=== PATIENT | female | born 1945 | race Caucasian/White ===

== ENCOUNTER 2017-05-31 15:32 | Emergency (ER) | payer MEDICARE, BC ==
[~2017-05-31] VITALS: Ht 152.4 cm; Wt 59.0 kg
[~2017-05-31 15:32] MED LIST: ALBUTEROL SULF8.5 GM INH; LEVAQUIN750 MG ORAL; NKM; PROMETHAZINE-C118 M1 ORAL
[2017-05-31] MEDS ORDERED: ARNUITY ELLIP200 MCG IH (15:43)
[2017-05-31 15:49] VITALS: BP 123/67
--- NOTE | 2017-05-31 16:27 | Emergency Room Report ---
History of Present Illness General Chief Complaint: Upper Respiratory Illness Source: Patient Present Illness HPI 72 YO Female presents to the ED c/o intermittent productive cough x 3 days, generalized body-aches, fatigue, subjective chills. denies fevers. reports ribcage pain when coughing. denies abdominal pain, tenderness, N/V. denies sore throat. reports hx of pneumonia and bronchitis, denies asthma or COPD. reports runny nose and nasal congestion. Denies CP (at rest or when not coughing) Palpitations, LOC, AMS, dizziness, Changes in Vision, Sensation, paresthesias, or a sudden severe headache. Allergies: Coded Allergies: No Known Allergies (Unverified , 07/07/14) Patient History Past Medical History: see triage record Past Surgical History: none Pertinent Family History: none Last Menstrual Period: Post Immunizations: UTD Reviewed Nursing Documentation: PMH: Agreed, PSxH: Agreed Nursing Documentation-PMH Hx Asthma: Yes - PNA x3. Review of Systems All Other Systems: negative except mentioned in HPI Physical Exam Vital Signs Date Time Temp Pulse Resp B/P (MAP) Pulse Ox O2 Delivery O2 Flow Rate FiO2 05/31/17 15:38 98.2 80 20 123/67 98 Room Air Sp02 EP Interpretation: reviewed, normal General Appearance: no apparent distress, alert, GCS 15, non-toxic Head: normocephalic, atraumatic Eyes: bilateral eye normal inspection, bilateral eye PERRL ENT: hearing grossly normal, normal pharynx, no angioedema, normal voice, TMs + canals normal, uvula midline, moist mucus membranes Neck: full range of motion, no meningismus, no bony tend, supple/symm/no masses Respiratory: chest non-tender, lungs clear, normal breath sounds, no respiratory distress, speaking full sentences, other - distant lung sounds, deep breaths cause pt. to have dry cough. no appreciable ronchi or rales. scant wheezes. Cardiovascular #1: regular rate, rhythm, no edema Rectal: deferred Musculoskeletal: back normal, gait/station normal, normal range of motion, non- tender Neurologic: alert, oriented x3, responsive, motor strength/tone normal, sensory intact, normal gait, speech normal Skin: normal color, no rash, warm/dry, well hydrated Lymphatic: no adenopathy Medical Decision Making PA Attestation Dr. Winston is my supervising Physician whom patient management has been discussed with. Diagnostic Impression: Primary Impression: Bronchitis Additional Impression: Upper respiratory infection, viral ER Course 72 YO Female presents to the ED c/o intermittent productive cough x 3 days, generalized body-aches, fatigue, subjective chills. denies fevers. reports ribcage pain when coughing. denies abdominal pain, tenderness, N/V. denies sore throat. reports hx of pneumonia and bronchitis, denies asthma or COPD. reports runny nose and nasal congestion. Denies CP (at rest or when not coughing) Palpitations, LOC, AMS, dizziness, Changes in Vision, Sensation, paresthesias, or a sudden severe headache. Ddx considered but are not limited to URI, pneumonia, PE, strep pharyngitis, meningitis. Vital signs: Pt. is afebrile, the remaining VS are WNL H&PE are most consistent with URI- no meningeal signs, oropharynx is not involved, no evidence of bacterial infection at this time. ORDERS: -CXR : WNL ED INTERVENTIONS: -Albuterol HHN --PT. EDUCATION: Discussed antibiotic resistance with inappropriate prescribing of antibiotics for viral illnesses. Discussed signs and symptoms to indicate viral illness versus bacterial illness. DISCHARGE: At this time pt. is stable for d/c to home. Will provide printed patient care instructions, and any necessary prescriptions. Care plan and follow up instructions have been discussed with the patient prior to discharge. Chest X-Ray Diagnostic Results Chest X-Ray Diagnostic Results : Chest X-Ray Ordered: Yes # of Views/Limited/Complete: 1 View Indication: Other - productive cough EP Interpretation: Yes PAT Xray: Interpretation reviewed, by supervising MD, and agrees with findings. Interpretation: no consolidation, no effusion, no pneumothorax, no acute cardiopulmonary disease Impression: No acute disease Electronically Signed by: Tess Tavera PA-C Last Vital Signs Date Time Temp Pulse Resp B/P (MAP) Pulse Ox O2 Delivery O2 Flow Rate FiO2 05/31/17 15:49 98.2 80 20 123/67 98 Room Air Disposition: HOME, SELF-CARE Condition: Stable Scripts Acetaminophen* (TYLENOL EXTRA STRENGTH*) 500 Mg Tablet 500 MG ORAL Q6H Y for Mild Pain/Temp > 100.5, #20 TAB 0 Refills Prov: Tess Tavera PHi 05/31/17 Guaifenesin (Guaifenesin) 1,200 Mg Tab.er.12h 1200 MG PO Q12HR for 10 Days, #20 TAB Prov: Tess Tavera 05/31/17 Albuterol Sulfate* (ALBUTEROL SULFATE MDI*) 8.5 Gm Hfa.aer.ad 2 PUFF INH Q3H, #1 INH 0 Refills Prov: Tess Tavera 05/31/17 Codeine/Promethazine Hcl* (PROMETHAZINE-CODEINE SYRUP*) 118 Ml Syrup 5 ML ORAL Q6H Y for For Cough, #118 ML 0 Refills Prov: Tess Tavera 05/31/17 Referrals: NON PHYSICIAN (PCP) Patient Instructions: Acute Bronchitis, [id number] Additional Instructions: Take medications as directed. Follow up with a Primary Care Provider in 3-5 days, even if your symptoms have resolved. --Please review list of primary care clinics, if you do not already have a primary care provider Return sooner to ED if new symptoms occur, or current symptoms become worse. Do not drink alcohol, drive, or operate heavy machinery while taking Cough Syrup as this may cause drowsiness. - Please note that this Emergency Department Report was dictated using [employer] stitch machine operator technology software, occasionally this can lead to erroneous entry secondary to interpretation by the dictation equipment. Tess Tavera May 31, 2017 16:27
[2017-05-31] MEDS ORDERED: Albuterol ud Inhalation HHN ONE (17:30)
[2017-05-31] MEDS ORDERED: GUAIFENESIN1200 MG PO (18:31)
[2017-05-31] MEDS ORDERED: ALBUTEROL SULF8.5 GM INH (18:31)
[2017-05-31] MEDS ORDERED: PROMETHAZINE-C118 M1 ORAL (18:31)
[2017-05-31] MEDS ORDERED: TYLENOL EXTRA500 MG ORAL (18:34)
[2017-05-31 18:44] VITALS: BP 123/67
[2017-05-31 18:45] VITALS: BP 123/67
--- NOTE | 2017-06-01 12:26 | Diagnostic Imaging Report ---
Indication: Cough Comparison: 07/07/2014 A single view chest radiograph was obtained. Findings: Mild reticular densities prominent at the lung bases which appears chronic. Heart size is normal. Bones are slightly osteopenic. IMPRESSION: No acute disease
== END 2017-05-31 18:49 | disposition home or self-care (01) ==
LOC: EMR 16:20
DX: J40 Bronchitis, not specified as acute or chronic (principal); J06.9 Acute upper respiratory infection, unspecified; B97.89 Other viral agents as the cause of diseases classified elsewhere
CPT/HCPCS: 71010; 94640; 94664; 99284